=== PATIENT | male | born 1995 | race Caucasian/White ===

== ENCOUNTER 2022-08-21 13:26 | Emergency (ER) | payer BC, SELFPAY ==
[2022-08-21] VITALS (15 sets, daily range): BP systolic 125–155; BP diastolic 73–80; PULSE 83–110; RESP 15–34; TEMP 37.8–38.9; O2SAT 90–98; BMI 33.9
--- NOTE | 2022-08-21 13:36 | ECG_ITS ---
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 Measurements Intervals [place] Rate: 103 P: 44 UT: 146 QRS: 24 QRSD: 94 T: 40 QT: 304 QTc: 399 Interpretive Statements SINUS TACHYCARDIA NONSPECIFIC T-WAVE ABNORMALITY No previous ECG available for comparison Electronically Signed On 08-21-2022 21:53:59 CDT by iJmena Marte M.D. [id number]
--- NOTE | 2022-08-21 13:46 | W.ED.WEAKNES ---
HPI - Weakness General: Chief complaint: Weakness Stated complaint: Weakness, Urgent care sent Time Seen by Provider: 08/21/22 13:29 History of Present Illness: 27-year-old male presenting today with fevers, chills, rapid heart rate. 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 As has been feeling rundown for last 24 hours. Had intermittent cough 2 weeks ago. Which improved. He notes he has had significant diarrhea. But no significant abdominal pain. Notes nausea without vomiting. He denies chest pain or shortness of breath. He has no other complaints or concerns. Review of Systems General: Reports: 10 or more systems reviewed and unremarkable except in HPI and below Physical Exam Const: COMMON NORMALS: no acute distress, patient oriented x3 and alert GENERAL APPEARANCE: cooperative ORIENTATION/CONSCIOUSNESS: Yes awake, Yes oriented to person, Yes oriented to place and Yes oriented to time HENMT: COMMON NORMALS: normocephalic, atraumatic, external ears normal, Normal external nose present and moist oral mucous membranes HEAD & SCALP: normal to inspection, normocephalic and atraumatic NOSE: Normal external nose present GENERAL EAR: hearing grossly impaired EXTERNAL EAR: Yes external ears normal Eye: COMMON NORMALS: Equal, round and reactive pupils present, EOMs intact bilaterally, conjunctivae normal and no scleral icterus GENERAL EYE: appearance normal, both eyes and all related structures EYELID: eyelids normal CONJUNCTIVA: Yes conjunctivae normal SCLERA: sclerae normal PUPIL: Yes Equal, round and reactive pupils present Neck/C-Spine: COMMON NORMALS: full ROM, supple and no JVD GENERAL: Yes normal visual inspection Lymph: LYMPHATIC: no lymphadenopathy noted and no lymphedema noted Chest: COMMONS NORMALS: normal inspection of the chest Resp: COMMON NORMALS: normal respiratory effort, No retractions and No use of accessory muscles Cardio: COMMON NORMALS: no JVD, regular rate and regular rhythm RATE: regular rate RHYTHM: regular rhythm GI: COMMON NORMALS: Normal to inspection, nondistended, normoactive bowel sounds present : COMMON NORMALS: Yes no CVA tenderness BLADDER/KIDNEY EXAM: Yes no CVA tenderness Back/Pelvis: COMMON NORMALS: no CVA tenderness and thoracic and lumbar spine normal to inspection Extremity: COMMON NORMALS: normal to inspection, full ROM and capillary refill normal GENERAL: Yes normal exam except as noted Neuro: COMMON NORMALS: patient oriented x3, CN's II-XII intact bilaterally, moves all extremities, no focal motor deficits, no sensory deficits noted and gait normal SENSORIUM/ORIENTATION: Yes alert, Yes oriented to person, Yes oriented to place and Yes oriented to time Psych: COMMON NORMALS: mental status grossly normal, Normal thought process present, cooperative and normal affect THOUGHT PROCESS: Normal thought process present Skin: COMMON NORMALS: no rashes or lesions noted and no wounds GENERAL SKIN EXAM: no rashes or lesions noted Course Vital Signs: Vital signs: Vital Signs Temperature 101.2 F H 08/21/22 15:16 Pulse Rate 83 08/21/22 15:45 Respiratory Rate 34 H 08/21/22 15:45 Blood Pressure 125/73 08/21/22 15:45 Pulse Oximetry 96 08/21/22 15:45 Oxygen Delivery Me thod 08/21/22 13:28 MDM - Weakness Medical Decision Making 27-year-old male presenting today with concerns for flulike illness. Rapid heart rate, fevers. Patient bolused normal saline. Exam is nonfocal. Patient with significant diarrhea. Vitals improved after normal saline and Toradol. We will start patient on Flagyl for for significant diarrhea. Stool sent for ova and parasites. Patient was given strict return precautions and recommended routine outpatient follow-up. Lab Data : 08/21/22 13:45 08/21/22 13:45 Radiology Impressions Chest X-Ray 08/21/22 13:48 IMPRESSION: No acute findings. Laboratory Results WBC 11.4 10^3/uL (4.0-10.0) H 08/21/22 13:45 RBC 5.12 10^6/uL (4.1-5.3) 08/21/22 13:45 Hgb 15.2 g/dL (11.7-16.6) 08/21/22 13:45 Hct 44.8 % (42.0-52.0) 08/21/22 13:45 MCV 87.5 fl (80-94) 08/21/22 13:45 MCH 29.7 pg (28.0-34.0) 08/21/22 13:45 MCHC 33.9 g/dL (30.0-36.0) 08/21/22 13:45 RDW 11.3 % (12.1-15.1) L 08/21/22 13:45 Plt Count 205 10^3/cmm (130-400) 08/21/22 13:45 MPV 10.3 fL (7.4-10.4) 08/21/22 13:45 Neut % (Auto) 83.1 % 08/21/22 13:45 Lymph % (Auto) 10.4 % 08/21/22 13:45 [place] % (Auto) 5.8 % 08/21/22 13:45 Eos % (Auto) 0.1 % 08/21/22 13:45 Baso % (Auto) 0.2 % 08/21/22 13:45 Neut # (Auto) 9.49 10^3/uL (1.8-7.7) H 08/21/22 13:45 Lymph # (Auto) 1.2 10^3/uL (0.8-4.8) 08/21/22 13:45 [place] # (Auto) 0.7 10^3/uL (0.2-0.9) 08/21/22 13:45 Eos # (Auto) 0.0 10^3/uL (0.0-0.8) 08/21/22 13:45 Baso # (Auto) 0.0 10^3/uL (0.0-0.1) 08/21/22 13:45 Nucleated RBC % (auto) 0 % 08/21/22 13:45 Nucleated RBCs # 0.0 /100WBC 08/21/22 13:45 Sodium 134 mmol/L (136-145) L 08/21/22 13:45 Potassium 3.8 mmol/L (3.5-5.1) 08/21/22 13:45 Chloride 98 mmol/L (98-107) 08/21/22 13:45 Carbon Dioxide 25 mmol/L (22-29) 08/21/22 13:45 Anion Gap 14.8 (5-19) 08/21/22 13:45 BUN 9 mg/dL (6-20) 08/21/22 13:45 Creatinine 0.9 mg/dL (0.7-1.2) 08/21/22 13:45 GFR Calculation 102.0 mL/min (90-130) 08/21/22 13:45 Glucose 99 mg/dL (65-115) 08/21/22 13:45 Calculated Osmolality 277 mOsm/kg (285-295) L 08/21/22 13:45 Calcium 9.5 mg/dL (8.5-10.5) 08/21/22 13:45 Total Bilirubin 0.8 mg/dL (0.15-1.2) 08/21/22 13:45 AST 18 U/L (0-40) 08/21/22 13:45 ALT 20 U/L (0-41) 08/21/22 13:45 Alkaline Phosphatase 60 U/L (40-130) 08/21/22 13:45 Total Protein 8.0 g/dL (6.6-8.7) 08/21/22 13:45 Albumin 4.5 g/dL (3.5-5.2) 08/21/22 13:45 Globulin 3.5 g/dL (1.3-4.6) 08/21/22 13:45 TSH 1.52 uIU/mL (0.27-4.20) 08/21/22 13:45 Coronavirus 229E (PCR) Not detected (NOT DETECT) 08/21/22 14:14 SARS-CoV-2 (PCR) Not detected (NOT DETECT) 08/21/22 14:14 Discharge Plan Discharge Patient Disposition: Home Clinical Impression: Diarrhea Condition: Stable Prescriptions: New metronidazole 500 mg tablet 500 mg PO BID 7 Days Qty: 14 0RF Discharge Orders: Discharge ED (Routine); Ordered 08/21/22 Ordered By: Kirk Horowitz Patient Instructions: Diarrhea - Adult Coding Level of Care Code 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
--- NOTE | 2022-08-21 13:48 | XRR_ITS ---
PROCEDURE INFORMATION: Exam: XR Chest Exam date and time: 08/21/2022 1:51 PM Age: 27 years old Clinical indication: Other: Weakness; Additional info: Fevers TECHNIQUE: Imaging protocol: Radiologic exam of the chest. Views: 1 view. COMPARISON: No relevant prior studies available. FINDINGS: Lungs: Unremarkable. No consolidation. Pleural spaces: Unremarkable. No pleural effusion. No pneumothorax. Heart/Mediastinum: Unremarkable. No cardiomegaly. Bones/joints: Unremarkable. XR/XR chest 1V 14113 IMPRESSION: No acute findings.
[2022-08-21 13:53] LABS: Basophils % 0.2 %; Eosinophils % 0.1 %; Hematocrit 44.8 % (42.0-52.0); Hemoglobin 15.2 g/dL (11.7-16.6); Lymphocytes # 1.2 10^3/uL (0.8-4.8); Lymphocytes % 10.4 %; Mean Corpuscular HGB Conc 33.9 g/dL (30.0-36.0); Mean Corpuscular Hemoglobin 29.7 pg (28.0-34.0); Mean Corpuscular Volume 87.5 fl (80-94); Mean Platelet Volume 10.3 fL (7.4-10.4); Monocytes # 0.7 10^3/uL (0.2-0.9); Monocytes % 5.8 %; Neutrophils # 9.49 10^3/uL (1.8-7.7); Neutrophils % 83.1 %; Nucleated Red Blood Cells % 0 %; Platelet Count 205 10^3/cmm (130-400); Red Blood Count 5.12 10^6/uL (4.1-5.3); Red Cell Distribution Width 11.3 % (12.1-15.1); White Blood Count 11.4 10^3/uL (4.0-10.0)
[2022-08-21] MEDS: sodium chloride 0.9% 1,000 ML 999 ML IV (13:59)
[2022-08-21] MEDS: ketorolac 30 mg/mL INJ 15 MG IVP (14:00)
[2022-08-21 14:26] LABS: Alanine Aminotransferase 20 U/L (0-41); Albumin Level 4.5 g/dL (3.5-5.2); Alkaline Phosphatase 60 U/L (40-130); Anion Gap 14.8 (5-19); Aspartate Amino Transferase 18 U/L (0-40); Blood Urea Nitrogen 9 mg/dL (6-20); Calcium 9.5 mg/dL (8.5-10.5); Carbon Dioxide 25 mmol/L (22-29); Chloride 98 mmol/L (98-107); Creatinine Clr Calc Pharmacy 161.7097; Globulin 3.5 g/dL (1.3-4.6); Glucose 99 mg/dL (65-115); Osmolality Calculated 277 mOsm/kg (285-295); Potassium 3.8 mmol/L (3.5-5.1); Sodium 134 mmol/L (136-145); Thyroid Stimulating Hormone 1.52 uIU/mL (0.27-4.20); Total Bilirubin 0.8 mg/dL (0.15-1.2)
[2022-08-21 16:02] LABS: Adenovirus Not Detected (NOT DETECT); Chlamydia Pneumoniae Not Detected (NOT DETECT); Coronavirus 229E,HKU1,NL63,OC4 Not Detected (NOT DETECT); Human Metapneumovirus Not Detected (NOT DETECT); Human Rhinovirus/Enterovirus Not Detected (NOT DETECT); Influenza A Not Detected (NOT DETECT); Influenza A H1 Not Detected (NOT DETECT); Influenza A H1-2009 Not Detected (NOT DETECT); Influenza A H3 Not Detected (NOT DETECT); Influenza B Not Detected (NOT DETECT); Mycoplasma Pneumoniae Not Detected (NOT DETECT); Parainfluenza Virus Type 1 Not Detected (NOT DETECT); Parainfluenza Virus Type 2 Not Detected (NOT DETECT); Parainfluenza Virus Type 3 Not Detected (NOT DETECT); Parainfluenza Virus Type 4 Not Detected (NOT DETECT); Respiratory Syncytial Virus A Not Detected (NOT DETECT); Respiratory Syncytial Virus B Not Detected (NOT DETECT); SARS-COV-2 Not Detected (NOT DETECT)
== END 2022-08-21 17:02 | disposition home or self-care (01) ==
PROVIDERS: Emergency Provider Emergency Medicine
DX: R19.7 Diarrhea, unspecified (principal)
CPT/HCPCS: 71045; 80053; 84443; 85025; 87506; 87635; 93005; 96361; 96374; 99284; J1885; J7030